=== PATIENT | male | born 1975 | race Caucasian/White ===

== ENCOUNTER → 2021-02-24 09:15 | Outpatient (CLI) | payer OTHER, SELFPAY ==
--- NOTE | ~2021-02-24 | CT_ITS ---
EXAMINATION: CT abdomen wo con DATE: 02/24/2021 09:31 INDICATION: Epigastric and periumbilical pain TECHNIQUE: Computed tomography (CT) of the abdomen was performed without intravenous contrast. The do se-length product (DLP) was 738.15 mGy-cm. Automated exposure control and iterative reconstruction te nique were employed. COMPARISON: 02/08/2015 FINDINGS: The lung bases are clear. The heart size is normal. The liver, spleen, gallbladder, and adr enal glands are normal. There is fatty replacement of the pancreas. The left kidney is unremarkable. There is a 2 mm nonobstructing stone of the right kidney. There are no pathologically enlarged abdomi nal lymph nodes. The appendix is normal. There is no free intraperitoneal gas or evidence of bowel ob struction. IMPRESSION: 1. No CT correlate for the patient's symptoms. Reviewed, dictated and finalized at location A.
== END ==
PROVIDERS: PCP Internal Medicine; Visit Provider Surgery
DX: R10.10 Upper abdominal pain, unspecified (principal)
CPT/HCPCS: 74150

== ENCOUNTER → 2023-01-08 15:54 | Outpatient (CLI) | payer BC, SELFPAY ==
--- NOTE | ~2023-01-08 | US_ITS ---
EXAMINATION: US thyroid DATE: 01/08/2023 16:10 INDICATION: Nontoxic single thyroid nodule. TECHNIQUE: Multiple ultrasound images of the thyroid were obtained. COMPARISON: None. FINDINGS: The right thyroid lobe measures 4.5 x 1.3 x 1.7 cm. The left thyroid lobe measures 3.8 x 1.0 x 1.9 c m. The thyroid isthmus measures 0.3 cm. There is normal echotexture and echogenicity throughout the t hyroid gland. No discrete nodules identified. Normal vascular flow is present. IMPRESSION: Normal thyroid ultrasound findings. Reviewed, dictated and finalized at location K.
== END ==
PROVIDERS: PCP Internal Medicine; Visit Provider Nurse Practitioner
DX: E04.1 Nontoxic single thyroid nodule (principal)
CPT/HCPCS: 76536